=== PATIENT | female | born 1955 | race Two or more races ===

== ENCOUNTER 2018-10-14 06:00 | Day surgery (SDC) | payer OTHER ==
[~2018-10-14 06:00] MED LIST: METOPROLOL SUCC50 MG PO
[2018-10-14] MEDS ORDERED: ULTRACET PO (12:31)
== END 2018-10-14 17:15 | disposition home or self-care (01) ==
LOC: CIR.AMB 06:00
DX: C23 Malignant neoplasm of gallbladder (principal); D13.5 Benign neoplasm of extrahepatic bile ducts; K80.10 Calculus of gallbladder with chronic cholecystitis without obstruction

== ENCOUNTER 2023-07-30 10:03 | Emergency (ER) | payer OTHER ==
[~2023-07-30] VITALS: Ht 160 cm; Wt 78.5 kg
[~2023-07-30 10:03] MED LIST changes: +ULTRACET PO
== END 2023-07-30 18:21 | disposition home or self-care (01) ==
LOC: ER 10:03
DX: R42 Dizziness and giddiness (principal)